=== PATIENT | female | born 1950 | race Caucasian/White ===

== ENCOUNTER 2018-11-17 20:24 | Emergency (ER) | payer OTHER, MEDICAID ==
[~2018-11-17] VITALS: Ht 157.5 cm; Wt 108.9 kg
--- NOTE | 2018-11-17 20:35 | NUR ---
BIB RA. TO ER BED 8. AAOX4. NO RESP DISTRESS, BREATHING EVEN AND UNLABORED. C/O VOMITING OF BRIGHT RED BLOOD X 1 W/ NAUSEA DROPHAMMER OPERATOR. PT REPORTS LARGE AMOUNT OF BRIGHT RED BLOOD WITH CLOTS. PT REPORTS NAUSEA. PT ARRIVE WITH A LINE ON R AC 20G NS NS RUNNING, HELD. PT REPORT THAT SHE HAS AN UPCOMING COLON SX. AWAITING MD FOR EVAL AND ORDERS
[2018-11-17] MEDS ORDERED: PANTOPRAZOLE 40 MG VIAL ONE (20:49)
[2018-11-17] MEDS ORDERED: ONDANSETRON HCL/PF 4 MG/2 ML VIAL ONE (20:49)
[2018-11-17 20:53] LABS: BASOPHILS # (AUTO) 0.1 /CMM (0.0-0.2); BASOPHILS % (AUTO) 0.6 % (0.0-2.0); EOSINOPHILS % (AUTO) 1.2 % (0.0-6.0); HEMATOCRIT 31 % (33-45); HEMOGLOBIN 9.4 g/dL (11.5-14.8); LYMPHOCYTES # (AUTO) 2.3 /CMM (0.8-4.8); LYMPHOCYTES % (AUTO) 15.4 % (20.0-44.0); MEAN CORPUSCULAR HGB CONC 31 g/dl (31.0-36.0); MEAN CORPUSCULAR VOLUME 87 fL (82-100); MONOCYTES # (AUTO) 0.6 /CMM (0.1-1.30); MONOCYTES % (AUTO) 4.3 % (2.0-12.0); NEUTROPHILS # (AUTO) 11.8 /CMM (1.8-8.9); NEUTROPHILS % (AUTO) 78.5 % (43.0-81.0); PLATELET COUNT (AUTO) 477 /CMM (150-450); RED BLOOD CELL COUNT(AUTO) 3.52 MIL/uL (4.0-5.2)
[2018-11-17] MEDS ORDERED: IV NS 0.9% 1,000 ML BAG IV ONE (21:00)
[2018-11-17] MEDS ORDERED: PANTOPRAZOLE 40 MG VIAL IV ONE (21:00)
[2018-11-17] MEDS ORDERED: ONDANSETRON HCL/PF 4 MG/2 ML VIAL IVP ONE (21:00)
[2018-11-17 21:01] LABS: CALCIUM, SERUM 8.4 mg/dL (8.5-10.1); CREATININE 1.2 mg/dL (0.6-1.3); POTASSIUM 3.7 mmol/L (3.5-5.1)
[2018-11-17 21:08] LABS: ALBUMIN 2.8 g/dL (3.4-5.0); BILIRUBIN,DIRECT 0.1 mg/dL (0.0-0.2); BILIRUBIN,TOTAL 0.2 mg/dL (0.2-1.0); TOTAL PROTEIN, SERUM 6.8 g/dL (6.4-8.2)
--- NOTE | 2018-11-17 21:40 | NUR ---
CALLED [facility] SPOKE WITH SAHIL. EXPECTING A CALL BACK FROM [facility]
[2018-11-17] MEDS ORDERED: LIDOCAINE VISCOUS 2% UD 15 ML UDC ONE (22:26)
[2018-11-17] MEDS ORDERED: LIDOCAINE VISCOUS 2% UD 15 ML UDC MM ONE (22:30)
--- NOTE | 2018-11-17 22:35 | NUR ---
NGT SUCCESSFULLY INSERTED. GURGLING HEARD OVER EPIGASTRIC AREA. NO RESIDUAL NOTED. PT TOLERATED PROCEDURE WELL. AWAITING KUB FOR PLACEMENT CONFIRMATION
[2018-11-17 22:37] LABS: BASOPHILS # (AUTO) 0.1 /CMM (0.0-0.2); BASOPHILS % (AUTO) 0.4 % (0.0-2.0); EOSINOPHILS % (AUTO) 0.4 % (0.0-6.0); HEMATOCRIT 29 % (33-45); LYMPHOCYTES # (AUTO) 2.3 /CMM (0.8-4.8); LYMPHOCYTES % (AUTO) 12.4 % (20.0-44.0); MEAN CORPUSCULAR HGB CONC 31 g/dl (31.0-36.0); MEAN CORPUSCULAR VOLUME 87 fL (82-100); MONOCYTES # (AUTO) 0.8 /CMM (0.1-1.30); MONOCYTES % (AUTO) 4.4 % (2.0-12.0); NEUTROPHILS # (AUTO) 15.4 /CMM (1.8-8.9); NEUTROPHILS % (AUTO) 82.4 % (43.0-81.0); PLATELET COUNT (AUTO) 257 /CMM (150-450); RED BLOOD CELL COUNT(AUTO) 3.34 MIL/uL (4.0-5.2); WHITE BLOOD COUNT (AUTO) 18.7 K/uL (4.3-11.0)
--- NOTE | 2018-11-18 00:40 | NUR ---
xray at bedside.
--- NOTE | 2018-11-18 00:57 | NUR ---
PT ACCEPTED TO [facility] BY DR PEREZ. # FOR REPORT [phone]. ALS ETA [id number]
--- NOTE | 2018-11-18 01:10 | NUR ---
REPORT GIVEN TO EMERALD CORONA FOR JOEL AT [facility]. ETA P/U @ [id number]
--- NOTE | 2018-11-18 01:42 | NUR ---
[place] #18 AT BEDSIDE FOR PT TRANSPORT TO [facility]. REPORT GIVEN TO EMERALD GREWAL WHO WILL BE WITH ACCOMPANYING PT WHILE BEING TRANSPORTED
[2018-11-18 01:45] VITALS: BP 120/85
== END 2018-11-18 01:51 | disposition short-term general hospital (02) ==
LOC: ER 20:30
DX: K92.2 Gastrointestinal hemorrhage, unspecified (principal); D64.9 Anemia, unspecified; E11.65 Type 2 diabetes mellitus with hyperglycemia; E86.0 Dehydration; I10 Essential (primary) hypertension; E66.01 Morbid (severe) obesity due to excess calories; R00.0 Tachycardia, unspecified; Z88.0 Allergy status to penicillin
CPT/HCPCS: 36415; 74018; 74176; 80048; 80076; 82962; 83690; 85025 ×2; 85730; 86850; 93005; 96361; 96374; 96375; 99285; C9113; J2405; J7030

== ENCOUNTER 2019-06-21 17:04 | Inpatient (IN) | payer OTHER, MEDICAID ==
[~2019-06-21] VITALS: Ht 154.9 cm; Wt 105.7 kg
--- NOTE | 2019-06-21 17:11 | NUR ---
[id number], from home, chills, fever, low back pain s/p back sx discharged from [facility] yesterday, pt aaox4, -sob, vss, pending md cabrera
[2019-06-21] MEDS ORDERED: VANCOMYCIN 1 GM in IV D5W 250 ML IV ONE (17:30)
[2019-06-21] MEDS ORDERED: IV NS 0.9% 1,000 ML BAG IV ONE ×2 (17:30→19:00)
[2019-06-21] MEDS ORDERED: ACETAMINOPHEN ES 500 MG TABLET PO ONE (17:30)
[2019-06-21] MEDS ORDERED: ACETAMINOPHEN ES 500 MG TABLET ONE (17:30)
[2019-06-21 17:34] LABS: BASOPHILS # (AUTO) 0.1 /CMM (0.0-0.2); BASOPHILS % (AUTO) 0.3 % (0.0-2.0); EOSINOPHILS % (AUTO) 0.6 % (0.0-6.0); HEMATOCRIT 31 % (33-45); HEMOGLOBIN 9.9 g/dL (11.5-14.8); LYMPHOCYTES # (AUTO) 1.2 /CMM (0.8-4.8); LYMPHOCYTES % (AUTO) 7.7 % (20.0-44.0); MEAN CORPUSCULAR HGB CONC 32 g/dl (31.0-36.0); MEAN CORPUSCULAR VOLUME 94 fL (82-100); MONOCYTES # (AUTO) 0.2 /CMM (0.1-1.30); MONOCYTES % (AUTO) 1.2 % (2.0-12.0); NEUTROPHILS # (AUTO) 14.1 /CMM (1.8-8.9); NEUTROPHILS % (AUTO) 90.2 % (43.0-81.0); PLATELET COUNT (AUTO) 612 /CMM (150-450); WHITE BLOOD COUNT (AUTO) 15.6 K/uL (4.3-11.0)
[2019-06-21] MEDS: CEFEPIME 1 GM in IV D5W 50 ML IV ONE ×2 (17:36→18:54)
[2019-06-21 17:48] LABS: CALCIUM, SERUM 8.5 mg/dL (8.5-10.1); CARBON DIOXIDE 22 mmol/L (21-32); CHLORIDE 98 mmol/L (98-107); CREATININE 1.4 mg/dL (0.6-1.3); GLUCOSE 193 mg/dL (74-106); POTASSIUM 3.2 mmol/L (3.5-5.1); SODIUM SERUM 135 mmol/L (136-145); UREA NITROGEN, BLOOD 20 mg/dL (7-18)
[2019-06-21 17:53] LABS: ALANINE AMINOTRANSFERASE 13 U/L (12-78); ALBUMIN 2.8 g/dL (3.4-5.0); ALKALINE PHOSPHATASE 149 U/L (46-116); ASPARTATE AMINOTRANSFERASE 19 U/L (15-37); BILIRUBIN,DIRECT 0.1 mg/dL (0.0-0.2); BILIRUBIN,TOTAL 0.3 mg/dL (0.2-1.0); TOTAL PROTEIN, SERUM 7.2 g/dL (6.4-8.2)
[2019-06-21 18:09] LABS: APPEARANCE,URINE Slightly Cloudy (CLEAR); BILIRUBIN,URINE Negative (NEGATIVE); BLOOD, URINE Trace-lysed Ery/uL (NEGATIVE); COLOR,URINE Yellow (YELLOW); KETONES,URINE 15 (NEGATIVE); LEUKOCYTE ESTERASE ,URINE Small (NEGATIVE); NITRITE, URINE Positive (NEGATIVE); PROTEIN,URINE 100 mg/dl (NEGATIVE); UGLUCOSE Negative (NEGATIVE); UROBILINOGEN,URINE 0.2 EU/dL (0.2)
[2019-06-21 18:24] LABS: BACTERIA,URINE 3+ /HPF (None Seen); WBC,URINE 21-50 /HPF (0-3)
[2019-06-21 18:25] LABS: SQUAMOUS EPITHELIAL CELL,UR Few /HPF (None Seen)
--- NOTE | 2019-06-21 18:43 | NUR ---
CALLED [facility] FOR MD TO MD. AWAITING FOR CALL BACK. DR. ESQUIVEL ON-CALL.
[2019-06-21] MEDS ORDERED: DULO60CA45 PO (18:59)
[2019-06-21] MEDS ORDERED: MULT1TAB22 PO (18:59)
[2019-06-21] MEDS ORDERED: METF-440 PO (18:59)
[2019-06-21] MEDS ORDERED: ALBU18HF2 IH (18:59)
[2019-06-21] MEDS ORDERED: LOSA100T31 PO (18:59)
[2019-06-21] MEDS ORDERED: SODI45SP6 (18:59)
[2019-06-21] MEDS ORDERED: HYDR-4354 PO (18:59)
[2019-06-21] MEDS ORDERED: KETO10DR3 OP (18:59)
[2019-06-21] MEDS ORDERED: ESCI20TA PO (18:59)
[2019-06-21] MEDS ORDERED: POLY17PO4 PO (18:59)
[2019-06-21] MEDS ORDERED: GLUC-187 PO (18:59)
[2019-06-21] MEDS ORDERED: LACT10SO PO (18:59)
[2019-06-21] MEDS ORDERED: NIFE90TA61 PO (18:59)
[2019-06-21] MEDS ORDERED: DOCU-141 PO (18:59)
[2019-06-21] MEDS ORDERED: TIZA2TAB5 PO (18:59)
[2019-06-21] MEDS ORDERED: FLUT16SP16 (18:59)
[2019-06-21] MEDS ORDERED: HYDR25TA4 PO (18:59)
[2019-06-21] MEDS ORDERED: ATEN50TA PO (18:59)
[2019-06-21] MEDS ORDERED: PANT40TA4 PO (18:59)
[2019-06-21] MEDS ORDERED: SENN-168 PO (18:59)
[2019-06-21] MEDS ORDERED: DICL100G16 TP (18:59)
[2019-06-21] MEDS ORDERED: GLIP10TA11 PO (18:59)
[2019-06-21] MEDS ORDERED: TRAZ-182 PO (18:59)
[2019-06-21] MEDS ORDERED: ATOR40TA PO (18:59)
[2019-06-21] MEDS ORDERED: FEXO180T94 PO (18:59)
--- NOTE | 2019-06-21 18:59 | NUR ---
per dr ruiz, [facility] approved pt to stay in [place]
--- NOTE | 2019-06-21 19:30 | NUR ---
CALLED [facility]. SPRAYER MACHINE WAS PAGED
--- NOTE | 2019-06-21 19:33 | NUR ---
CALLED [facility] FOR [facility] BED
--- NOTE | 2019-06-21 19:54 | NUR ---
ER SPOKE TO ARY GONZALEZ DNP REGARDING PT ADMISSION.
[2019-06-21] MEDS ORDERED: Z GUARD REMEDY 2 OZ OINT TP PRN (20:00)
[2019-06-21] MEDS ORDERED: ZOLPIDEM TARTRATE 5 MG TABLET PO PRN (20:00)
[2019-06-21] MEDS ORDERED: MAGNESIUM HYDROXIDE 30 ML UDC PO PRN (20:00)
[2019-06-21] MEDS ORDERED: MAG HYDROX/AL HYDROX/SIMETH 30 ML UDC PO PRN (20:00)
[2019-06-21] MEDS ORDERED: ONDANSETRON HCL/PF 4 MG/2 ML VIAL IVP PRN (20:00)
--- NOTE | 2019-06-21 20:11 | NUR ---
vs updated, pt is normotensive, denies any sob, -cp, -n/v. dr ruiz aware, pt is stable to be transferred to inpatient floor, awaiting bed assignment at this time
--- NOTE | 2019-06-21 21:10 | NUR ---
lactic 3.5
--- NOTE | 2019-06-21 21:35 | NUR ---
GABRIEL RN NOTE ADMITTED 69 YEARS OLD FEMALE FOR ER WITH THE DX OF SEVERE SEPSIS BY ORION GONZALEZ. PT IS A/O X 3 NO SOB, NO DISTRESS OR DISCOMFORT NOTED. DENIES PAIN. ON TELE SR/ST HR 104. SKIN ASSESSMENT DONE, PICTURES TAKEN AND PLACE THEM IN THE CHART. WOUND CONSULT TRIGGERED. AT BED SIDE. SIDE RAILS UP X 2 AND CALL LIGHT WITHIN REACH. VSS. CONTINUE TO MONITOR HER.
--- NOTE | 2019-06-21 21:44 | NUR ---
report given to serenity sue for erik pt transported to 1st floor
[2019-06-21 22:00] VITALS: BP 94/60
[2019-06-21] MEDS ORDERED: DEXTROSE 50%-WATER 50 ML DISP.SYRIN IV PRN (22:30)
[2019-06-22] MEDS: IV NS 0.9% 1,000 ML IV PRN ×2 (01:07→21:13)
[2019-06-22] MEDS ORDERED: CEFEPIME 1 GM VIAL ONE (02:50)
[2019-06-22] MEDS: ACETAMINOPHEN 325 MG TABLET PO PRN ×4 (02:59→23:58)
--- NOTE | 2019-06-22 02:59 | NUR ---
RN NOTE PATIENT C/O OF HEADACHE 06/22. PRN TYLENOL 650MG PO GIVEN ORDERED. WILL CONT TO MONITOR FOR EFFECTIVENESS.
[2019-06-22] MEDS ORDERED: CEFEPIME 1 GM in IV D5W 50 ML IV ONE (03:00)
[2019-06-22 04:00] VITALS: BP 149/59
--- NOTE | 2019-06-22 04:00 | NUR ---
RN NOTES PATIENT REPORTED TYLENOL WAS EFFECTIVE HEADACHE SUBSIDED TO 0/10.
[2019-06-22] MEDS ORDERED: VANCOMYCIN 500 MG in IV D5W 100ml IV ONE (06:00)
[2019-06-22] MEDS ORDERED: VANCOMYCIN 1.5 GM in IV D5W 500ml IV ONE (06:00)
[2019-06-22] MEDS ORDERED: FEE PK DOSING 1 MIN EA MC ONE (06:03)
--- NOTE | 2019-06-22 06:34 | NUR ---
RN NOTES PATIENT NOTED WITH A FEVER OF 101.7 ORALLY. BODY COOLING MEASUREMENTS INITIATED.SAFETY MEASURES IN PLACE. WILL CONT TO MONITOR. AT BED SIDE.
[2019-06-22 06:36] LABS: BASOPHILS # (AUTO) 0.1 /CMM (0.0-0.2); BASOPHILS % (AUTO) 0.4 % (0.0-2.0); EOSINOPHILS % (AUTO) 0.9 % (0.0-6.0); HEMATOCRIT 29 % (33-45); HEMOGLOBIN 9.2 g/dL (11.5-14.8); LYMPHOCYTES # (AUTO) 0.9 /CMM (0.8-4.8); LYMPHOCYTES % (AUTO) 5.7 % (20.0-44.0); MEAN CORPUSCULAR HGB CONC 32 g/dl (31.0-36.0); MEAN CORPUSCULAR VOLUME 92 fL (82-100); MONOCYTES # (AUTO) 0.8 /CMM (0.1-1.30); MONOCYTES % (AUTO) 5.7 % (2.0-12.0); NEUTROPHILS # (AUTO) 13.1 /CMM (1.8-8.9); NEUTROPHILS % (AUTO) 87.3 % (43.0-81.0); PLATELET COUNT (AUTO) 492 /CMM (150-450); RED BLOOD CELL COUNT(AUTO) 3.18 MIL/uL (4.0-5.2)
--- NOTE | 2019-06-22 06:52 | NUR ---
COMMERCIAL INSULATOR NOTES PATIENT IN BED RESTING COMFORTABLY, BREATHING NORMAL, NO SOB OR ACUTE DISTRESS NOTED AT THIS TIME. PATIENT DENIES ANY PAIN. PATIENT IS RUNNING A FEVER TYLENOL WAS NOT DUE BODY COOLING MEASURES IN PLACE. WILL ENDORSE TO DAY SHIFT NURSE TO FOLLOW UP. KEPT CLEAN AND DRY. ALL SAFETY MEASURES IN PLACE. BED IN LOW/LOCKED POSITION. BED IN LOWEST AND LOCKED POSITION. ENDORSE PATIENT TO DAY SHIFT NURSE.
[2019-06-22 06:55] LABS: ALBUMIN 2.1 g/dL (3.4-5.0); BILIRUBIN,TOTAL 0.4 mg/dL (0.2-1.0); CALCIUM, SERUM 7.8 mg/dL (8.5-10.1); CREATININE 0.9 mg/dL (0.6-1.3); MAGNESIUM 1.3 mg/dL (1.8-2.4); TOTAL PROTEIN, SERUM 6.1 g/dL (6.4-8.2)
[2019-06-22 06:58] LABS: POTASSIUM 2.8 mmol/L (3.5-5.1)
[2019-06-22 07:14] LABS: THYROID STIMULATING HORMONE 0.792 uIU/mL (0.358-3.74)
--- NOTE | 2019-06-22 07:16 | NUR ---
PATTERN PAINTER OPENING NOTE RECEIVED BEDSIDE REPORT. PT ASLEEP IN BED, ON 02 VIA NC 2L/MIN, SATURATING WELL, RESPIRATIONS EVEN AND UNLABORED, NO SIGNS OF RESPIRATORY DISTRESS NOTED. SINUS RHYTHM ON WALLET ASSEMBLER. IV SITE ON LEFT AC G18 INTACT, PATENT, WITH HEP LOCK IN PLACE. BED IN LOW POSITION, LOCKED, CALL LIGHT WITHIN REACH.
[2019-06-22] MEDS: BLOOD SUGAR DIAGNOSTIC 1 EACH STRIP IN SCH ×4 (07:37→21:21)
[2019-06-22] MEDS: INSULIN REGULAR, HUMAN 100 UNIT/ML 3 ML VIAL SQ PRN ×4 (07:49→21:24)
[2019-06-22 08:00] VITALS: BP 129/71
--- NOTE | 2019-06-22 09:54 | NUR ---
RECEIVED PHONE CALL FROM LAB, BLOOD CULTURE RESULTS: GRAM NEGATIVE RODS. NOTIFIED DR. JIE AVILA.
[2019-06-22] MEDS: Magnesium 1GM/D5W 100ML PREMIX 100 ML IV SCH ×4 (10:20→13:26)
[2019-06-22] MEDS: POTASSIUM CHLORIDE 20 MEQ TAB.PRT.SR PO SCH ×3 (10:25→12:18)
[2019-06-22] MEDS ORDERED: K PHOS NEUTRAL 250 MG TABLET PO ONE (11:00)
--- NOTE | 2019-06-22 11:19 | NUR ---
WOUND CARE CONSULT: PT PRESENTS WITH LEFT ARM SKIN TEAR AND CLOSED INCISION TO LOW BACK, PRESENT ON ADMISSION. RECOMMENDATIONS MADE FOR WOUND CARE AND SKIN PROTECTION. DISCUSSED WITH NURSING STAFF. PT IS CONTINENT AT THIS TIME AND ABLE TO TURN AND REPOSITION IN BED. PT STATES WILL FOLLOW UP WITH HER SURGEON AFTER DISCHARGE. CURRENT HAROLDO SCORE IS 19. Addendum: 06/22/19 at 1121 by ELLE SAMPSON WNDNU Amended: Links added.
[2019-06-22 12:00] VITALS: BP 130/61
--- NOTE | 2019-06-22 13:28 | NUR ---
PHARMACY CALLED REQUESTING MD TO COMPLETE MED RECONCILIATION Addendum: 06/22/19 at 1824 by MARY KWONG RN JIE NUTHOLOPATHY NOTIFIED
[2019-06-22 16:00] VITALS: BP 113/75
[2019-06-22] MEDS: CEFEPIME 2 GM in IV D5W 100 ML IV SCH (17:41)
[2019-06-22 20:00] VITALS: BP 119/55
[2019-06-23] VITALS: BP_SYST 119; BP_SYST 127; BP_DIAS 55; BP_DIAS 70
[2019-06-23] MEDS: HYDROCODONE/APAP 5/325MG 1 EACH TABLET PO PRN ×2 (03:35→10:09)
[2019-06-23 04:00] VITALS: BP 142/61
[2019-06-23] MEDS: ACETAMINOPHEN 325 MG TABLET PO PRN ×2 (06:22→21:25)
[2019-06-23 06:40] LABS: CALCIUM, SERUM 7.7 mg/dL (8.5-10.1); CREATININE 0.7 mg/dL (0.6-1.3); MAGNESIUM 1.5 mg/dL (1.8-2.4); POTASSIUM 2.9 mmol/L (3.5-5.1)
[2019-06-23 08:00] VITALS: BP 133/63
--- NOTE | 2019-06-23 08:00 | NUR ---
GABRIEL RN NOTE PATIENT IN BED AWAKE , ALERT X4 ON TELEMONITOR SR HR 92 , NEW HL ON RT AC INTACT AND FLUSHED WELL , ON IVF ORDERED , BED IN LOWEST AND LOCKED POSITION , ALL NEEDS ATTENDED NOT IN DISTRESS, CALL [facility] WITHIN REACH
[2019-06-23] MEDS: INSULIN REGULAR, HUMAN 100 UNIT/ML 3 ML VIAL SQ PRN ×4 (09:29→21:30)
[2019-06-23] MEDS: BLOOD SUGAR DIAGNOSTIC 1 EACH STRIP IN SCH ×4 (09:31→21:24)
[2019-06-23] MEDS ORDERED: Magnesium 1GM/D5W 100ML PREMIX 100 ML IV SCH (09:57)
[2019-06-23] MEDS: MAGNESIUM OXIDE 400 MG TABLET PO SCH ×2 (10:11→16:33)
[2019-06-23] MEDS: K PHOS NEUTRAL 250 MG TABLET PO SCH ×2 (10:12→16:33)
[2019-06-23] MEDS: POTASSIUM CHLORIDE 20 MEQ TAB.PRT.SR PO SCH ×3 (10:43→12:56)
--- NOTE | 2019-06-23 11:01 | NUR ---
fifi sue note seen by Michael sue flagsetter with possible d\c to [facility] f\u
[2019-06-23 12:00] VITALS: BP 151/78
[2019-06-23] MEDS ORDERED: VANCOMYCIN 1.5 GM in IV D5W 500 ML IV SCH (12:30)
[2019-06-23] MEDS ORDERED: INSU100V28 SQ (12:44)
[2019-06-23] MEDS ORDERED: VANC1.5P13 IV (12:44)
[2019-06-23] MEDS ORDERED: CEFE2PIG2 IV (12:44)
--- NOTE | 2019-06-23 15:00 | NUR ---
telecommunications network planner note family at bedside awaiting for bed to transfer to [place]
[2019-06-23 16:40] VITALS: BP 128/69
[2019-06-23] MEDS ORDERED: VANCOMYCIN 1 GM in IV D5W 250ml IV SCH (17:00)
[2019-06-23] MEDS: CEFEPIME 2 GM in IV D5W 100 ML IV SCH (17:17)
--- NOTE | 2019-06-23 18:27 | NUR ---
SKIVER SOCK LININGS NOTE ALL PAPERWORK READY TO TRANSFER TO [facility] BUT [facility] STILL DID NOT CALL FOR THE BED WILL F\U,LEFT A MASSES TO ALL REINFORCED STEEL PLACING SUPERVISOR
--- NOTE | 2019-06-23 19:10 | NUR ---
YARDER PUNCHER NOTES RECEIVED PATIENT IN BED AWAKE A/O X 4 FAMILY MEMBER @ BEDSIDE COMFORTABLY, BREATHING NORMAL, NO SOB OR ACUTE DISTRESS NOTED AT THIS TIME. PATIENT DENIES ANY PAIN.ON TELE MONITOR SR 90'S WITH R AC # 22 FLUSHING WELL KEPT CLEAN AND DRY. ALL SAFETY MEASURES IN PLACE. BED IN LOW/LOCKED POSITION. SIDE RAILS UP X 2 CALL LIGHT WITHIN REACH. PT IS FOR POSSIBLE DISCHARGE TO [place] CHARGE NURSE AWARE. WILL CONT TO MONITOR THE PT.
[2019-06-23 20:00] VITALS: BP 131/69
--- NOTE | 2019-06-23 20:50 | NUR ---
SPINNER CONTINUOUS NOTES RECEIVED CALL FROM NANCY SHARON JOHNSON INFORMING THAT PT CAN BE TRANSFER TONIGHT AT [facility] TELE [phone] PABLO, TO BE P/U BY [facility] @ 2100
--- NOTE | 2019-06-23 21:15 | NUR ---
LITERACY COACH NOTES GIVE REPORT TO MS GERBER CORBIN FROM [facility] ABOUT [facility] GUADALU[facility] THAT TO BE TRANSFER TO THEIR FACILITY
--- NOTE | 2019-06-23 21:45 | NUR ---
MINING ENGINEER DISCHARGE NOTES [facility] MED SURG RN MS SHI FOR HER TRANSFER TO [facility] TELE [id number], PT IS A/O X4, AWAKE AND STABLE WITH LATEST VITALS BP 131/69, HR 104 TEMP 97.3, RR 18 O2 SAT 98 % AT 2L O2 VIA NC, SAFELY TRANSFER FROM BED TO [facility] ALL BELONGINGS HAND OVER TO THE PT. FAMILY MEMBER AT BEDSIDE GIVE REPORT TO EMS THAT HS INSULIN WAS GIVEN 3 UNITS REGULAR WITH BLOOD SUGAR OF 196 RECEIVING NURSE AWARE OF THE HR OF THE PT.. PT ON ROUTE TO [facility] VIA [facility]
== END 2019-06-23 21:35 | disposition short-term general hospital (02) | DRG 871 ==
LOC: ER 17:05 → TELE-TD 21:38 → TELE1 06-23 12:24
PROVIDERS: ADMIT Hospitalist; ATTEND Hospitalist
DX: A41.9 Sepsis, unspecified organism (principal); N17.0 Acute kidney failure with tubular necrosis; R65.21 Severe sepsis with septic shock; N30.00 Acute cystitis without hematuria; E87.2 Acidosis; E87.1 Hypo-osmolality and hyponatremia; E11.9 Type 2 diabetes mellitus without complications; E86.0 Dehydration; R65.20 Severe sepsis without septic shock; Z88.8 Allergy status to other drugs, medicaments and biological substances; Z88.0 Allergy status to penicillin; Z91.011 Allergy to milk products; Z79.84 Long term (current) use of oral hypoglycemic drugs; Z79.51 Long term (current) use of inhaled steroids; D64.9 Anemia, unspecified; E78.5 Hyperlipidemia, unspecified; E87.6 Hypokalemia; Z98.1 Arthrodesis status; Z79.899 Other long term (current) drug therapy; Z68.39 Body mass index [BMI] 39.0-39.9, adult; T50.2X5A Adverse effect of carbonic-anhydrase inhibitors, benzothiadiazides and other diuretics, initial encounter; Y92.9 Unspecified place or not applicable
CPT/HCPCS: 36415; 71045-TC; 80048-TC; 80053-TC; 80061-TC; 80076-TC; 81000-TC; 82962-TC; 83605-TC; 83735-TC; 84100-TC; 84443-TC; 84484-TC; 85025-TC; 85730-TC; 87040-TC; 87081-TC; 87186-TC; A6253; G0378; J0692; J1815; J3370; J3475; J7030; J7060

== ENCOUNTER 2022-01-08 14:20 | Emergency (ER) | payer OTHER ==
[~2022-01-08] VITALS: Ht 157.5 cm; Wt 99.8 kg
[~2022-01-08 14:20] MED LIST: ALBU18HF2 IH; ATEN50TA PO; ATOR40TA PO; CEFE2PIG2 IV; DICL100G16 TP; DOCU-141 PO; DULO60CA45 PO; ESCI20TA PO; FEXO180T94 PO; FLUT16SP16; GLIP10TA11 PO; GLUC-187 PO; HYDR-4354 PO; HYDR25TA4 PO; INSU100V28 SQ; KETO10DR3 OP; LACT10SO3 PO; LOSA100T31 PO; METF-440 PO; MULT1TAB22 PO; NIFE90TA61 PO; PANT40TA49 PO; POLY17PO4 PO; SENN-261 PO; SODI45SP6; TIZA-180 PO; TRAZ-182 PO; VANC1.5P13 IV
[2022-01-08] MEDS ORDERED: IPRATROPIUM NEB FS 0.5 MG/2.5 ML AMPUL.NEB NEB ONE (14:30)
[2022-01-08] MEDS ORDERED: ALBUTEROL FS 2.5 MG/3 ML VIAL.NEB NEB ONE (14:30)
[2022-01-08] MEDS ORDERED: methylPREDNISolone SOD SUCC 125 MG/2ML VIAL IV ONE (14:30)
--- NOTE | 2022-01-08 14:31 | NUR ---
ANDREA, PT SOB, CALLED 911, WAS EATING LUNCH AND COULD NOT CATCH BREATH, EMT GAVE 1 TX OF ALBUTEROL , 02 WAS AT 90% NOW A6 94% RA.
[2022-01-08] MEDS ORDERED: methylPREDNISolone SOD SUCC 125 MG/2ML VIAL ONE (14:47)
[2022-01-08] MEDS ORDERED: ALBUTEROL FS 2.5 MG/3 ML VIAL.NEB ONE (15:03)
[2022-01-08 15:07] LABS: BASOPHILS # (AUTO) 0.1 K/uL (0.0-0.2); BASOPHILS % (AUTO) 0.8 % (0.0-2.0); EOSINOPHILS % (AUTO) 3.5 % (0.0-6.0); HEMATOCRIT 33 % (33-45); HEMOGLOBIN 10.9 g/dL (11.5-14.8); LYMPHOCYTES # (AUTO) 1.3 K/uL (0.8-4.8); LYMPHOCYTES % (AUTO) 18.3 % (20.0-44.0); MEAN CORPUSCULAR HGB CONC 33 g/dl (31.0-36.0); MEAN CORPUSCULAR VOLUME 97 fL (82-100); MONOCYTES # (AUTO) 0.6 K/uL (0.1-1.30); MONOCYTES % (AUTO) 8.3 % (2.0-12.0); NEUTROPHILS # (AUTO) 4.7 K/uL (1.8-8.9); NEUTROPHILS % (AUTO) 69.1 % (43.0-81.0); PLATELET COUNT (AUTO) 252 K/uL (150-450); RED BLOOD CELL COUNT(AUTO) 3.43 MIL/uL (4.0-5.2); WHITE BLOOD COUNT (AUTO) 6.9 K/uL (4.3-11.0)
[2022-01-08 16:02] LABS: CALCIUM, SERUM 8.3 mg/dL (8.5-10.1); CARBON DIOXIDE 29 mmol/L (21-32); CHLORIDE 105 mmol/L (98-107); GLUCOSE 74 mg/dL (74-106); POTASSIUM 4.2 mmol/L (3.5-5.1); SODIUM SERUM 139 mmol/L (136-145); UREA NITROGEN, BLOOD 22 mg/dL (7-18)
[2022-01-08 16:16] LABS: ALANINE AMINOTRANSFERASE 18 U/L (12-78); ALBUMIN 3.1 g/dL (3.4-5.0); ALKALINE PHOSPHATASE 52 U/L (46-116); ASPARTATE AMINOTRANSFERASE 19 U/L (15-37); BILIRUBIN,DIRECT 0.1 mg/dL (0.0-0.2); BILIRUBIN,TOTAL 0.4 mg/dL (0.2-1.0); TOTAL PROTEIN, SERUM 6.8 g/dL (6.4-8.2)
[2022-01-08] MEDS ORDERED: ALBU8.5H8 INH (16:35)
[2022-01-08] MEDS ORDERED: PRED50TA PO (16:35)
--- NOTE | 2022-01-08 16:54 | NUR ---
Patient discharged to home in stable condition. Written and verbal after care instructions given. Patient verbalizes understanding of instruction.
[2022-01-08 16:55] VITALS: BP 150/76
== END 2022-01-08 16:56 | disposition home or self-care (01) ==
LOC: ER 14:51
DX: J44.1 Chronic obstructive pulmonary disease with (acute) exacerbation (principal); E11.9 Type 2 diabetes mellitus without complications; Z88.0 Allergy status to penicillin; Z88.8 Allergy status to other drugs, medicaments and biological substances; Z79.899 Other long term (current) drug therapy
CPT/HCPCS: 99285; 96374; 71045; 93005; 85025; 80048; 80076; 36415; 84484; 83880; 94640 ×2; J2930